=== PATIENT | male | born 1990 | race African-American/Black ===

== ENCOUNTER 2017-02-20 20:21 | Emergency (ER) | payer OTHER ==
[2017-02-20] MEDS ORDERED: 0.9 % SODIUM CHLORIDE 250 ML IV.SOLN IV ONE (20:50)
[2017-02-20] MEDS ORDERED: 0.9 % SODIUM CHLORIDE 500 ML IV ONE (21:07)
[2017-02-20 21:23] LABS: BASOPHILS % 1.2 (0.0-1.5); EOSINOPHILS % 2.2 % (0.0-6.8); MEAN CORPUSCULAR HEMOGLOBIN 30.4 pg (28.0-34.0); MEAN CORPUSCULAR VOLUME 84.5 fl (80.0-100.0); MONOCYTES % 8.7 % (0.0-11.0); NEUTROPHILS # 3.1 # k/uL (1.4-7.7)
[2017-02-20 21:37] LABS: eGFR (African) > 60; eGFR (Non-African) > 60
--- NOTE | 2017-02-20 21:52 | ED Physician Documentation ---
Syncope/Near Syncope - HISTORIAN Historian: patient, paramedics, other (telecommunications repairer) - HPI Stated Complaint: near syncopal episode Chief Complaint: Near Syncope Witnessed: Yes Witnessed By: other (care program director) Symptoms Prior to Episode: other (out walking in 90 degree heat) Character of Events(s): almost passed out. denies: lost consciousness Location of Injury: none Associated Symptoms: none Further Comments: yes (26 year old male patient brought in by EMS after near syncopal episode. Patient was out walking for exercise, became dizzy, did not loose consciousness. Staff reports 2 near syncopal episodes this month, was evaluated by PCP after each, has appointment for event monitor on Tuesday.) - ROS CONST: recent illness (near syncopal episodes x 2) EYES/ENT: none GI/: denies: diarrhea, black stools MS/SKIN/LYMPH: denies: joint pain, leg swelling, rash, swollen glands, ankle swelling, other NEURO/PSYCH: denies: confusion, anxiety, depression, other - PAST HX Cardiac Disease: none Other History: Other (MR, GERD, constipation, aggressive behaviors) Allergies/Adverse Reactions: Allergies Allergy/AdvReac Type Severity Reaction Status Date / Time No Known Allergies Allergy Verified 02/20/17 20:36 Home Medications: Ambulatory Orders Medication Instructions Recorded Desmopressin Acetate [Ddavp] 0.2 mg PO BID 02/20/17 Docusate Sodium [Colace] 100 mg PO DAILY 02/20/17 Escitalopram Oxalate [Lexapro] 20 mg PO QDAY 02/20/17 Lamotrigine [Lamictal] 25 mg PO QDAY 02/20/17 Magnesium Hydroxide [Milk of 2,400 mg PO BID PRN 02/20/17 Magnesia] Omeprazole [Prilosec] 20 mg PO QDAY 02/20/17 Risperidone [Risperdal] 4 mg PO HS 02/20/17 Trazodone HCl 50 mg PO QDAY 02/20/17 - SOCIAL HX Smoking History: non-smoker - FAMILY HX Family History: denies: none - VITAL SIGNS Vital Signs: Vital Signs Temp Pulse Resp BP Pulse Ox 98.4 F 94 H 16 147/96 93 02/20/17 20:25 02/20/17 21:45 02/20/17 21:45 02/20/17 21:45 02/20/17 21:45 - REVIEWED ASSESSMENTS Nursing Assessment Reviewed: Yes Vitals Reviewed: Yes Progress - Progress Progress: Reviewed discharge instruction with care professional, verbalized understanding. - EKG/XRAY/CT EKG: rhythm (SR, no acute changes. ) ED Results Lab/Radiology - Lab Results Lab Results: Lab Results 02/20/17 02/20/17 02/20/17 21:17 21:17 21:17 WBC 5.40 K/ul K/ul (4.00-12.00) RBC 4.94 M/ul M/ul (3.90-5.20) Hgb 15.0 g/dL g/dL (12.0-18.0) Hct 41.8 % % (37.0-53.0) MCV 84.5 fl fl (80.0-100.0) MCH 30.4 pg pg (28.0-34.0) MCHC 36.0 g/dL g/dL (30.0-36.0) RDW 13.2 % % (11.3-14.3) Plt Count 260 K/mm3 K/mm3 (130-400) Neut % (Auto) 56.7 % % (39.0-79.0) Lymph % (Auto) 29.5 % % (16.0-50.0) [place] % (Auto) 8.7 % % (0.0-11.0) Eos % (Auto) 2.2 % % (0.0-6.8) Baso % (Auto) 1.2 (0.0-1.5) Neut # (Auto) 3.1 # k/uL # k/uL (1.4-7.7) Lymph # (Auto) 1.6 # k/uL # k/uL (0.6-4.0) [place] # (Auto) 0.5 # k/uL # k/uL (0.0-0.9) Eos # (Auto) 0.1 # k/uL # k/uL (0.0-0.6) Baso # (Auto) 0.1 # k/uL # k/uL (0.0-0.5) Reactive Lymphs % 1.7 % % (0.0-5.0) Reactive Lymphs # 0.1 # k/uL # k/uL (0.0-0.8) Sodium 139 mmol/L mmol/L (136-145) Potassium 3.9 mmol/L mmol/L (3.5-5.0) Chloride 100 mmol/L mmol/L (98-110) Carbon Dioxide 31 mmol/L mmol/L (20-32) BUN 11 mg/dL mg/dL (10-26) Creatinine 0.9 mg/dL mg/dL (0.4-1.5) Estimated Creat Clear 207 Est GFR ( Amer) > 60 (60 - ) Est GFR (Non-Af Amer) > 60 (60 - ) Glucose 121 mg/dL H mg/dL (70-99) Calcium 10.3 mg/dL mg/dL (8.5-10.5) Total Bilirubin 0.5 mg/dL mg/dL (0.2-1.2) AST 27 U/L U/L (0-41) ALT 37 U/L U/L (0-45) Alkaline Phosphatase 65 U/L U/L (46-116) Troponin I < 0.03 ng/mL L ng/mL (0.03-0.06) Total Protein 6.9 g/dL g/dL (6.0-8.5) Albumin 4.5 g/dL g/dL (3.0-5.5) - Orders Orders: ED Orders Category Date Time Status Continuous EKG monitoring Q30M Care 02/20/17 20:38 Active Continuous Pulse Oximetry Q30M Care 02/20/17 20:38 Active Orthostatics 1T Care 02/20/17 20:[address] IV Lock 1T Care 02/20/17 20:38 Active CBC/PLATELET/DIFF Stat Lab 02/20/17 21:17 Completed CMP Stat Lab 02/20/17 21:17 Completed TROPONIN I (cTnI) Stat Lab 02/20/17 21:17 Completed UA W/MICRO IF INDICATED Stat Lab 02/20/17 20:38 Ordered 0.9 % Sodium Chloride [Normal Saline] 500 ml Med 02/20/17 21:07 Discontinued IV .STK-MED 0.9 % Sodium Chloride [Sodium Chloride] Med 02/20/17 20:50 Once 500 ml IV NOW ONE EKG WITH COMPARISON Stat Ther 02/20/17 20:38 Ordered Syncope Physical Exam - Physical Exam General Appearance: other (calm and cooperative, pleasant mood, denies any pain) EENT: nml eye inspection, PERRL Respiratory: no resp distress, chest non-tender, breath sounds normal CVS: reg rate & rhythm, heart sounds normal, equal pulses, no murmur, no gallop , PMI nml, no JVD, no friction rub, 24 Abdomen: non-tender, no organomegaly, nml bowel sounds, no distention, other ( protuberant, obese) Skin: normal color, warm/dry, NR, INT, PAL, DR Extremities: non-tender, normal range of motion, no evidence of injury, no edema , J, [employer] PRESIDENT - Neuro/Psych Higher Functions: alert, oriented x3, no evidence of acute CVA, mood/affect nml (at his baseline per care professional at bedside), other (mental retardation) Sensorimotor: nml motor response, nml sensory response, nml gait Discharge Clincal Impression: Near syncope Referrals: Maurice Wilcox [Primary Care Provider] - 2 Days Additional Instructions: Continue all medications as prescribed Encourage patient to drink plenty of water before exercising outside when it is extremely hot. Limit outside activity in the heat of the day keep your appointment for the holter monitor test Home Medications: Ambulatory Orders Desmopressin Acetate [Ddavp] 0.2 mg PO BID 02/20/17 Docusate Sodium [Colace] 100 mg PO DAILY 02/20/17 Escitalopram Oxalate [Lexapro] 20 mg PO QDAY 02/20/17 Lamotrigine [Lamictal] 25 mg PO QDAY 02/20/17 Magnesium Hydroxide [Milk of Magnesia] 2,400 mg PO BID PRN 02/20/17 Omeprazole [Prilosec] 20 mg PO QDAY 02/20/17 Risperidone [Risperdal] 4 mg PO HS 02/20/17 Trazodone HCl 50 mg PO QDAY 02/20/17 Condition: Stable Disposition: 01 HOME, SELF-CARE Decision to Admit: NO Decision Time: 21:54
[2017-02-20 23:08] VITALS: BP 147/96
== END 2017-02-20 21:45 | disposition home or self-care (01) ==
LOC: ED 20:21
DX: R55 Syncope and collapse (principal)
CPT/HCPCS: 80053; 84484; 85025; J7060; 96360; 99284; S1016

== ENCOUNTER 2018-01-15 12:11 | Emergency (ER) | payer OTHER ==
[2018-01-15] MEDS ORDERED: ASPIRIN 81 MG CHEW TAB PO ONE (12:14)
--- NOTE | 2018-01-15 12:14 | ED Physician Documentation ---
Chest Pain - HISTORIAN Historian: patient - HPI Stated Complaint: epigastric pain - nausea Chief Complaint: Abdominal Pain Onset: days ago (1) Timing: gradual onset Duration: constant Last known Well Date: 01/13/18 Last Known Well Time: 08:00 Last known Well Code/Unknown Code: Unknown Context: other (not associated with certain activity - pain is "all the time" ) Severity: mild Quality: indigestion, burning Chest Pain Radiation: no radiation Chest Pain Signs/Symptoms: nausea, vomiting (x1 episode ) Worsened By: nothing Relieved By: nothing - ROS CONST: none MS/LYMPH: none GI/: none EYES/ENT: none SKIN/ENDO: none NEURO/PSYCH: none - PAST HX MS risk factors: other DVT/PE Risk Factors: none TAD/AAA risk factors: none Neuro deficit: none GI disease: GERD Lung disease: none Surgeries/Procedures: other Allergies/Adverse Reactions: Allergies Allergy/AdvReac Type Severity Reaction Status Date / Time No Known Allergies Allergy Verified 01/15/18 13:46 Home Medications: Ambulatory Orders Medication Instructions Recorded Desmopressin Acetate [Ddavp] 0.2 mg PO BID 02/20/17 Docusate Sodium [Colace] 100 mg PO DAILY 02/20/17 Escitalopram Oxalate [Lexapro] 20 mg PO QDAY 02/20/17 Lamotrigine [Lamictal] 25 mg PO QDAY 02/20/17 Magnesium Hydroxide [Milk of 2,400 mg PO BID PRN 02/20/17 Magnesia] Omeprazole [Prilosec] 20 mg PO QDAY 02/20/17 Risperidone [Risperdal] 4 mg PO HS 02/20/17 Trazodone HCl 50 mg PO QDAY 02/20/17 - SOCIAL HX Smoking History: non-smoker Alcohol Use: none Drug Use: none - FAMILY HX Family HX: none - VITAL SIGNS Vital Signs: Vital Signs Temp Pulse Resp BP Pulse Ox 147/96 02/20/17 21:45 - REVIEWED ASSESSMENTS Nursing Assessment Reviewed: Yes Vitals Reviewed: Yes Progress - Progress Progress: 1345: Pain in epigastric area is resolved. Results discussed and plan. He and case coordinator are agreeable DG 1400: He states when discharge was discussed he states that he was told nursing staff he was up all night "smoking weed with the staff at his care home" care tech with the pt aware DG 1420: Negative drug screen DG ED Results Lab/Radiology - Radiology Radiology Impressions: Examination: Portable chest History: PT STATES CHEST PAIN AND SOB TODAY (Hx) Comparison exam: None provided. Findings: Single view of the chest demonstrates a normal cardiac and mediastinal silhouette. Lung carlin without focal infiltrate. No blunting of the costophrenic margins. Osseous structures are appropriate for age. Impression: No acute pulmonary process. Electronically signed on Jan 15, 2018 2:00:47 PM CDT by: Best Carvalho Chest Pain Physical Exam - EXAM General Appearance: no acute distress, alert EENT: eye inspection normal Neck: nml inspection Respiratory: no resp. distress, chest non-tender, nml breath sounds CVS: reg. rate & rhythm, no murmur Abdomen: soft, normal bowel sounds, no distension, tenderness (epigastric area ) Skin: warm/dry, normal color Extremities: non-tender, normal range of motion, no evidence of injury, no edema Neuro: oriented X3, CN's nml as tested, motor nml, sensation nml, mood/affect nml, cognition normal Discharge Clincal Impression: Chronic GERD Referrals: Maurice Wilcox [Primary Care Provider] - 2 Days Comments: 1. Continue meds 2. [place] diet 3. Follow up with PCP in 2-4 days 4. Return to ER for any increased pain or other concerns Condition: Stable Decision to Admit: NO Date of Decison to Admit: 01/15/18 Decision Time: 14:06
[2018-01-15] MEDS ORDERED: MAG HYDROX/ALUMINUM HYD/SIMETH 30 ML, Lidocaine 2%Visc 15ml 20 MG, PHENobarb/HYOSCY/ATR... PO ONE ×3 (13:13)
[2018-01-15] MEDS ORDERED: MAG HYDROX/ALUMINUM HYD/SIMETH 30 ML UDC PO ONE (13:32)
[2018-01-15] MEDS ORDERED: Lidocaine 2%Visc 15ml 20 MG/ML UDC ONE (13:32)
[2018-01-15 13:54] LABS: eGFR (African) > 60; eGFR (Non-African) > 60
[2018-01-15 13:56] LABS: BASOPHILS % 0.7 (0.0-1.5); EOSINOPHILS % 3.2 % (0.0-6.8); MEAN CORPUSCULAR VOLUME 85.2 fl (80.0-100.0); MONOCYTES % 7.4 % (0.0-11.0); NEUTROPHILS # 2.6 # k/uL (1.4-7.7)
--- NOTE | 2018-01-15 14:04 | Diagnostic Imaging Report ---
[facility] [address] [facility] [address] [place], [place]. [address] Report Submission Date: Jan 15, 2018 2:00:47 PM CDT Patient Study Name: CECELIA RIVER Date: Jan 15, 2018 1:39:30 PM CDT Modality Type: DX Gender: M Description: CHEST : 89 Institution: [facility] Physician: DEWAYNE SUAZO Examination: Portable chest History: PT STATES CHEST PAIN AND SOB TODAY (Hx) Comparison exam: None provided. Findings: Single view of the chest demonstrates a normal cardiac and mediastinal silhouette. Lung carlin without focal infiltrate. No blunting of the costophrenic margins. Osseous structures are appropriate for age. Impression: No acute pulmonary process. Electronically signed on Jan 15, 2018 2:00:47 PM CDT by: Best DRAKE
[2018-01-15 14:42] LABS: CANNABINOIDS NEGATIVE ng/mL (< 50); METHYLENEDIOXYMETHAMPHETAMINE NEGATIVE ng/mL (<500)
[2018-01-15 15:22] VITALS: BP 124/92
== END 2018-01-15 14:43 | disposition home or self-care (01) ==
LOC: ED 12:11
DX: K21.9 Gastro-esophageal reflux disease without esophagitis (principal)
CPT/HCPCS: 71045; 80053; 80377; 82550; 84484; 85025; 99285; G0481; S1016